=== PATIENT | female | born 1985 | race African-American/Black ===

== ENCOUNTER → 2018-03-03 | Day surgery (SDC) | payer OTHER ==
[~2018-03-03] MED LIST: DEXAMETHASONE SOD PHOS 4 MG/ML VIAL ONE; EPINEPHrine HCL (1:1000) 1 MG/ML VIAL ONE; LACTATED RINGER'S 1000 ML INJ 1,000 ML ONE; MIDAZOLAM HCL 2 MG/2 ML VIAL ONE; MOXIFLOXACIN 0.5% OPHT SOLN 3 ML BTL ONE; NOVORP2; ONDANSETRON HCL 4 MG/2 ML VIAL IV PUSH ONE; PHENYLEPHRINE HCL 10% OPTH SOLN 5 ML BTL ONE; PROPOFOL 100 MG/10 ML INJ IV ONE; TETRACAINE 0.5% OPTH SOLN 15 ML BTL ONE; TOBRAMYCIN/DEXAMETHASONE OPTH OINT 3.5 GM TUBE ONE; TRIAMCINOLONE ACETONIDE 40 MG/ML VIAL ONE; Z.0.BCPILL PO; ceFAZolin INJ 1,000 MG VIAL ONE; prednisoLONE ACETATE 1% OPHT SUSP 5 ML BTL ONE
--- NOTE | 2018-03-05 17:17 | MP ---
cc: Alton Stewart MD, Karl E MD DATE OF OPERATION: 03/03/2018 POSTOPERATIVE DIAGNOSIS: 1. Severe proliferative diabetic retinopathy, 2. Severe tractional retinal detachment, left eye. PROCEDURE: Pars vitrectomy, severe tractional retinal detachment repair, endolaser, air fluid exchange, insertion of 15% C3F8 gas, endolaser, left eye. COMPLICATIONS: None. ESTIMATED BLOOD LOSS: Less than 1 mL ANESTHESIA: Dr. Crowell and general. INDICATIONS FOR PROCEDURE: The patient presented with severe proliferative diabetic retinopathy and tractional retinal detachment on her left eye. The patient elected for surgical correction understanding risks, benefits and alternatives. PROCEDURE NOTE: After informed consent was obtained, patient was brought to the operating room where general anesthesia was established. The left eye was prepped and draped in sterile fashion. Betadine in the conjunctival fornix. A 3 port pars plana vitrectomy was established with a self-retaining infusion cannula. A curved vitreous was evacuated. The large tractional complexes were circumscribed with vitrectomy. The complexes were segmented and then carefully delaminated with curved scissors, grasping forceps and vitrectomy. It had renewed mobility and PFO was instilled to reattach the retina. Endolaser was applied in a PRP fashion. Air fluid exchange was carried out. The retina remained nicely attached. 15% C3F8 gas was instilled. Trocars were removed and sclerotomies closed. Subconjunctival injection of Ancef and dexamethasone were given. The eye was patched with Tobramycin ointment. The patient was brought to recovery room in stable condition to continue followup at [facility] for her postoperative care. MD VANESSA Ramírez/ , 04:58 PM , 05:15 PM
== END | disposition home or self-care (01) ==
LOC: ESDC 06:37
PROVIDERS: ATTEND Ophthalmology
DX: E10.3532 Type 1 diabetes mellitus with proliferative diabetic retinopathy with traction retinal detachment not involving the macula, left eye (principal); Z79.4 Long term (current) use of insulin
CPT/HCPCS: 00145; 67113; 82948; J0171; J0690; J1100; J2250; J2405; J3010; J7120; J3301